=== PATIENT | male | born 1955 | race Caucasian/White ===

== ENCOUNTER 2018-03-19 06:49 | Emergency (ER) | payer MEDICARE ==
[~2018-03-19] VITALS: Ht 175.3 cm; Wt 112.5 kg
[2018-03-19] MEDS ORDERED: LYRICA150 MG PO (07:04)
[2018-03-19] MEDS ORDERED: ENDOCET 10-3251 EACH PO (07:05)
[2018-03-19] MEDS ORDERED: BUPROPION HCL150 M2 PO (07:06)
[2018-03-19] MEDS ORDERED: LOSARTAN POTASS25 MG PO (07:06)
[2018-03-19] MEDS ORDERED: METFORMIN HCL500 MG PO (07:07)
[2018-03-19] MEDS ORDERED: AUGMENTIN 875-1 EACH PO (07:20)
== END 2018-03-19 07:33 | disposition home or self-care (01) ==
LOC: ED 06:49
DX: H66.92 Otitis media, unspecified, left ear (principal); E11.9 Type 2 diabetes mellitus without complications; Z88.8 Allergy status to other drugs, medicaments and biological substances; Z79.84 Long term (current) use of oral hypoglycemic drugs; Z79.899 Other long term (current) drug therapy
CPT/HCPCS: 99283